=== PATIENT | female | born 1965 | race Caucasian/White ===

== ENCOUNTER 2020-05-02 23:01 | Emergency (ER) | payer SELFPAY ==
[~2020-05-02] VITALS: Ht 157.5 cm; Wt 67.6 kg
[2020-05-02 23:12] VITALS: Ht 157.5 cm; Wt 67.6 kg
[2020-05-03 00:06] LABS: BASOPHIL % 0.2 % (0-2); PLATELET COUNT 186 x10^3mcL (130-400); RED CELL DISTRIBUTION WIDTH 14.1 % (11.5-14.5)
[2020-05-03 00:14] LABS: CALCIUM 8.2 mg/dL (8.5-10.1); CARBON DIOXIDE 28.1 mmol/L (21-32); CHLORIDE SERUM 105 mmol/L (98-107); CREATININE SERUM 0.8 mg/dL (0.6-1.0); GFR1 > 60 mL/min; GLUCOSE SERUM 119 mg/dL (74-106); POTASSIUM SERUM 3.3 mmol/L (3.5-5.1); SODIUM SERUM 141 mmol/L (136-145)
[2020-05-03 00:23] LABS: ALBUMIN 3.4 g/dL (3.4-5.0); ALKALINE PHOSPHATASE 85 U/L (46-116); ALT/SGPT 39 U/L (14-59); AST/SGOT 35 U/L (15-37); BILIRUBIN TOTAL 0.2 mg/dL (0.20-1.00)
[2020-05-03 01:08] VITALS: BP 116/44
== END 2020-05-03 01:08 | disposition home or self-care (01) ==
LOC: ED 23:01
PROVIDERS: Emergency Medicine
DX: K57.30 Diverticulosis of large intestine without perforation or abscess without bleeding (principal)
CPT/HCPCS: 36415; J1885